=== PATIENT | female | born 1945 | race Caucasian/White ===

== ENCOUNTER 2019-04-06 18:36 | Emergency (ER) | payer OTHER, MEDICAID ==
[~2019-04-06] VITALS: Ht 167.6 cm; Wt 59.0 kg
[2019-04-06 18:45] VITALS: BP_SYST 119
--- NOTE | 2019-04-06 18:45 | NUR ---
PT TRIAGE IN HALLWAY
--- NOTE | 2019-04-06 19:13 | NUR ---
[facility] Side rails up. Report given to Rangel TSE.
--- NOTE | 2019-04-06 20:00 | NUR ---
Pt brought in by ambulance from [facility]. pt is awake, alert, confused and rambling. Pt is poor historian and is unclear of cause or origin of injury at this time. Pt states that she has elbow pain, Denies chest pain, nausea, diarrhea, shortness of breath. Pt showing no acute signs of distress or pain. Pt asked for a cup of coffee upon entering the emergency room and being placed in bed. Pt vital signs stable. resting comfortably with provided warm blanket
--- NOTE | 2019-04-06 20:15 | NUR ---
ER at bedside examining patient.
[2019-04-06 21:29] LABS: BASOPHILS % (AUTO) 0.5 % (0.0-2.0); EOSINOPHILS # (AUTO) 0.1 K/uL (0.0-0.4); EOSINOPHILS % (AUTO) 2.6 % (0.0-4.0); HEMATOCRIT 35.3 % (36-48); LYMPHOCYTES % (AUTO) 40.5 % (20.5-51.5); MEAN CORPUSCULAR HEMOGLOBIN 31 pg (27-31); MEAN CORPUSCULAR HGB CONC 34 % (32-36); MEAN CORPUSCULAR VOLUME 91 fL (79.0-98.0); MONOCYTES # (AUTO) 0.7 K/uL (0.0-1.0); MONOCYTES % (AUTO) 13.4 % (1.7-9.3); NEUTROPHILS # (AUTO) 2.1 K/uL (1.8-7.7); PLATELET COUNT (AUTO) 145 K/uL (130-430); RED BLOOD CELL COUNT(AUTO) 3.86 MIL/uL (4.2-6.2); RED CELL DISTRIBUTION WIDTH 15.4 % (9.0-15.0); WHITE BLOOD COUNT (AUTO) 4.9 K/uL (4.8-10.8)
--- NOTE | 2019-04-06 21:30 | NUR ---
Pt Wandering around ED. Pt Looking for snacks. Pt redirected into bed, pt again resting comfortably.
[2019-04-06 21:38] LABS: ANION GAP 2 (5-15); CALCIUM 9.1 mg/dL (8.4-11.0); CHLORIDE 102 mmol/L (98-107); CREATININE 1.34 mg/dL (0.55-1.30); GLUCOSE 90 mg/dL (70-99); POTASSIUM 4.9 mmol/L (3.5-5.1); SODIUM SERUM 135 mmol/L (136-145); UREA NITROGEN, BLOOD 38 mg/dL (8-21)
[2019-04-06 21:41] LABS: INR 1.1 (0.8-1.2)
[2019-04-06 21:43] LABS: ALANINE AMINOTRANSFERASE 21 U/L (12-78); ALBUMIN 3.1 g/dL (3.4-4.8); ASPARTATE AMINOTRANSFERASE 27 U/L (10-37); TOTAL BILIRUBIN 0.2 mg/dL (0.0-1.0)
--- NOTE | 2019-04-06 23:50 | NUR ---
Pt Had Ammonia Value of 74 on 03/06 per labs provided by [facility]. Currently at 64, with known encephalopathy
--- NOTE | 2019-04-07 | NUR ---
Pt Wandering around ED. Pt Looking for snacks and a drink of coffee. Pt redirected into bed, pt again resting comfortably.
[2019-04-07 00:14] LABS: BILIRUBIN,URINE NEGATIVE (NEGATIVE); BLOOD, URINE NEGATIVE (NEGATIVE); CLARITY/URINE CLEAR (CLEAR); COLOR,URINE YELLOW (YELLOW); GLUCOSE,URINE NEGATIVE (NEGATIVE); KETONES,URINE NEGATIVE (NEGATIVE); LEUKOCYTE ESTERASE ,URINE NEGATIVE (NEGATIVE); NITRITE, URINE NEGATIVE (NEGATIVE); PROTEIN URINE NEGATIVE (NEGATIVE); UROBILINOGEN,URINE 0.2 (0.2-1.0)
--- NOTE | 2019-04-07 00:58 | NUR ---
Report Called to Yolis, Charge nurse at [facility] regarding return of patient.
[2019-04-07 01:36] VITALS: BP_SYST 130
--- NOTE | 2019-04-07 01:38 | NUR ---
Patient given written and verbal discharge instructions and verbalizes understanding. Report Called to Facility in care of patient. report Given to EMS Crew. ER MD discussed with patient the results and treatment provided. Patient in stable condition. ID arm band removed. No RX given. Patient educated on pain management and to follow up with PMD. Pain Scale 0/10. Opportunity for questions provided and answered. Medication side effect fact sheet provided.
== END 2019-04-07 01:38 | disposition home or self-care (01) ==
LOC: SED 18:36
DX: S50.01XA Contusion of right elbow, initial encounter (principal); E72.20 Disorder of urea cycle metabolism, unspecified; N28.9 Disorder of kidney and ureter, unspecified; K21.9 Gastro-esophageal reflux disease without esophagitis; E03.9 Hypothyroidism, unspecified; F31.9 Bipolar disorder, unspecified; X58.XXXA Exposure to other specified factors, initial encounter; Y93.89 Activity, other specified; Y92.89 Other specified places as the place of occurrence of the external cause; Y99.8 Other external cause status
CPT/HCPCS: 36415; 80053; 81003; 82140-TC; 85025; 85610-TC; 85730-TC; 99284